=== PATIENT | male | born 1995 | race Caucasian/White ===

== ENCOUNTER 2017-10-20 08:30 | Day surgery (SDC) | payer BC ==
[~2017-10-20 08:30] MED LIST: Bupivacaine 0.5%/EPINEPHrine 1:200,000 50 ML MDV ONE; Dexamethasone 4 MG/ML SDV ONE; Glycopyrrolate 0.2 MG/ML 5 ML MDV ONE; Neostigmine Methylsulfate 1 MG/ML 5 ML Syringe ONE; Ondansetron 4 MG/2 ML SDV ONE; Propofol 200 MG/20 ML SDV ONE; Rocuronium 50 MG/5 ML Vial ONE; Succinylcholine 200 MG/10 ML MDV ONE; fentaNYL 250 MCG/5 ML SDV ONE
[2017-10-20] MEDS ORDERED: Acetaminophen 500 MG Tab PO ONE (09:00)
[2017-10-20] MEDS: Dextrose 5%-Lactated Ringers 1,000 ML IV SCH ×2 (09:22→11:42)
[2017-10-20] MEDS ORDERED: Ampicillin/Sulbactam Na 3 GM in Sodium Chloride 0.9% 100 ML IV ONE (09:30)
[2017-10-20] MEDS ORDERED: Ketamine 500 MG/5 ML MDV IV SCH (10:00)
[2017-10-20] MEDS ORDERED: Dexamethasone 4 MG/ML SDV ONE (11:03)
--- NOTE | 2017-10-27 09:34 | OR ---
DATE OF PROCEDURE: 10/20/2017 PREOPERATIVE DIAGNOSIS: Recurrent tonsillitis. POSTOPERATIVE DIAGNOSIS: Recurrent tonsillitis. OPERATIVE PROCEDURE: Tonsillectomy (10399). ANESTHESIA: General. [employer]IDE SALES PROFESSIONAL: MARY ANN Peoples. INDICATIONS FOR PROCEDURE: This is a 22-year-old male presenting with recurrent problems of tonsillitis. The plan is to proceed with a tonsillectomy at this time. Potential risks including bleeding, infection, injury to the structures in the area, possibility of massive bleeding in the postoperative period, which might be potentially life-threatening, and then the likelihood that there would be some change in vocal quality were all reviewed with the patient, and he wishes to proceed. DETAILS OF PROCEDURE: The patient was taken to the operating room and placed in supine position. After general endotracheal anesthesia was induced, the oral retractor was placed, initially exposing the right tonsil. Using electrocautery, the tonsil was then dissected free from the mucosal edges initially and then from the tonsillar bed. Extra cauterization was then applied to the area of the primary arterial inflow to the tonsil, and the tonsil was delivered from the field. This was fairly large, being roughly the size of a ping-pong ball, and it did contain some purulent material within it, although it did not appear to be acutely inflamed per se. The retractor was then repositioned, and the left tonsil was similarly excised. At this point, good hemostasis was confirmed bilaterally and both sides were anesthetized with 0.5% Marcaine using a total of 16 mL. At that point, no further problems noted. The tonsillar retractors were removed and the patient taken to the recovery room in satisfactory condition. There were no evident complications. Denver oSto MD /[id number]
== END 2017-10-20 15:02 | disposition home or self-care (01) ==
LOC: JP.SDS 08:30
PROVIDERS: ATTEND Surgery
DX: J03.91 Acute recurrent tonsillitis, unspecified (principal); Z91.030 Bee allergy status
CPT/HCPCS: 36415; 42826; 80048; 85027; 88304; A9270; J0295; J0330; J1100; J2405; J2704; J2710; J3010; J7030; J7042